=== PATIENT | male | born 1970 | race Caucasian/White ===

== ENCOUNTER 2017-04-23 18:32 | Inpatient (IN) | payer BC ==
[~2017-04-23] VITALS: Ht 182.9 cm; Wt 104.1 kg
[~2017-04-23 18:32] MED LIST: ALBU1AER9 INH; ASPEC325 PO; CETI10TA84 PO; DICL-201 PO; FRRG PO; IBUP-1449 PO; PANT40TA PO; SYMIN/8045 INH
[2017-04-23] MEDS ORDERED: SODIUM CHLORIDE 0.9% 1000ML 1,000 ML IV STA (18:55)
[2017-04-23 19:13] LABS: BASO % 0.2 %; BASO ABS # 0.02 K/uL (0-0.2); COMPLETE YES; EOS % 1.9 %; HEMATOCRIT 36.6 % (42-52); IG% 0.3 %; LYMPH % 27.5 %; LYMPH ABS # 3.18 K/uL (1.2-3.4); MEAN CELL VOLUME 81.5 fL (80-100); MEAN CORPUSCULAR HEMOGLOBIN 27.2 pg (25-34); MEAN CORPUSCULAR HGB CONC 33.3 g/dl (32-36); MEAN PLATELET VOLUME 10.2 fL (7.4-10.4); NEUT % 63.1 %; PLATELET COUNT 301 K/uL (130-400); RED BLOOD COUNT 4.49 M/uL (4.7-6.1); WHITE BLOOD COUNT 11.56 K/uL (4.8-10.8)
[2017-04-23 19:25] LABS: URINE APPEARANCE CLEAR (CLEAR); URINE BILIRUBIN NEG (NEG); URINE COLOR DK YELLOW; URINE NITRITE NEG (NEG); URINE PH 5.5 (4.5-7.5); URINE SPECIFIC GRAVITY 1.028 (1.000-1.030); UROBILINOGEN NEG (NEG); ZZUR CULT IF INDIC CLEAN CATCH NO
[2017-04-23 19:27] LABS: MANUAL MICROSCOPIC REQUIRED? NO; REVIEW REQ? NO
[2017-04-23 19:30] LABS: BUN/CREATININE RATIO 12.4 (10-20); CALCIUM 8.3 mg/dl (8.5-10.1); CREATININE 1.2 mg/dl (0.60-1.40); POTASSIUM 3.8 mmol/L (3.5-5.1)
[2017-04-23] MEDS ORDERED: ALBU18002 INH (19:35)
[2017-04-23] MEDS ORDERED: MoRPHine SULFATE 10 MG/ML CARP/VIAL IV STA (19:44)
[2017-04-23] MEDS ORDERED: ONDANSETRON INJ 2 MG/ML 2 ML VIAL IV STA (19:44)
[2017-04-23] MEDS ORDERED: OPTIRAY 320 IV PRN (19:45)
[2017-04-23] MEDS ORDERED: MoRPHine SULFATE 2 MG/ML CARP ONE (20:20)
[2017-04-23] MEDS ORDERED: MoRPHine SULFATE 4 MG/ML 1 ML CARP\\VIAL ONE (20:20)
--- NOTE | 2017-04-23 20:48 | DIAGNOSTIC IMAGING REPORT ---
CT ABD/PELVIS IV CONTRAST ONLY CLINICAL HISTORY: Periumbilical pain COMPARISON STUDY: None. TECHNIQUE: Following the IV administration of 94 mL of Optiray-320, CT scan of the abdomen and pelvis was performed from the lung bases to the proximal femurs. Images are reviewed in the axial, sagittal, and coronal planes. IV contrast was administered without complication. CT DOSE: 864.30 mGy.cm FINDINGS: Lower chest: There is a small pericardial effusion. There are minor dependent atelectatic changes. There are trace pleural effusions. Liver: The contrast-enhanced liver is normal in size, contour, and attenuation. There is no intrahepatic biliary ductal dilatation. The hepatic veins and portal veins are patent. Gallbladder: There is pericholecystic edema. In the setting of right upper quadrant abdominal pain, the findings are suspicious for acute cholecystitis. Clinical correlation is advocated. Spleen: Normal in size and attenuation. Pancreas: Unremarkable. Adrenal glands: Unremarkable. Kidneys: There is a 6 mm right renal hypodensity likely representing a cyst. There is no hydronephrosis. Bowel: There is a small hiatal hernia. There are no transition zones indicate bowel obstruction. The appendix appears normal. There is no acute diverticulitis. Peritoneum: There is trace free pelvic fluid. No free air is visualized. Vasculature: The abdominal aorta is normal in course and caliber. There is a retroaortic left renal vein. Adenopathy: There is a borderline enlarged lymph node within the gastrohepatic ligament. There are mildly enlarged lymph nodes in the left external iliac chain. There are also borderline enlarged lymph nodes in the left common femoral region. Pelvic viscera: The bladder, and pelvic viscera are unremarkable. Skeletal structures: No destructive osseous lesions are seen. IMPRESSION: 1. Mild infiltration of the pericholecystic fat. In the setting of right upper quadrant abdominal pain, the findings are viewed as suspicious for acute cholecystitis. Clinical correlation in this regard is advocated 2. Mildly enlarged left iliac chain lymph nodes. Borderline enlarged lymph node in the gastric hepatic ligament. 3. No evidence of bowel obstruction. No evidence of free air 4. Normal appendix. No evidence of acute diverticulitis 5. Trace pleural effusions. Small pericardial effusion. Electronically signed by: Keenan Rosario M.D. 04/23/2017 8:47 PM Dictated Date/Time: 04/23/2017 8:40 PM
[2017-04-23] MEDS ORDERED: PIPERACILLIN/TAZOBACTAM 4.5 GM/100ML D5W IV STA (20:51)
--- NOTE | 2017-04-23 21:51 | DIAGNOSTIC IMAGING REPORT ---
BILIARY ULTRASOUND CLINICAL HISTORY: Right upper quadrant abdominal pain. Abnormal CT scan. COMPARISON STUDY: No previous studies for comparison. FINDINGS: The pancreas was nonvisualized. The liver was of slightly increased echogenicity, without evidence of focal mass. There is no ductal dilatation. The common bile duct measures 5 mm. The right kidney measures 10.9 cm in length. The gallbladder contains calculi and sludge. The gallbladder wall is the upper limits of normal in thickness. The technologist reports a negative sonographic Giordano sign. There is trace pericholecystic fluid. IMPRESSION: 1. Cholelithiasis and trace pericholecystic fluid. 2. No ductal dilatation 3. The technologist reports a negative sonographic Giordano sign 4. If deemed clinically necessary, a nuclear medicine hepatobiliary study could be obtained in follow-up to evaluate cystic duct patency Electronically signed by: Keenan Rosario M.D. 04/23/2017 9:50 PM Dictated Date/Time: 04/23/2017 9:47 PM
[2017-04-23] MEDS ORDERED: HYDROmorphone INJ 1 MG/ML SYR IV PRN (23:30)
[2017-04-23] MEDS ORDERED: OXYCODONE/ACETAMINOPHEN 5-325 TAB PO PRN (23:30)
[2017-04-23] MEDS ORDERED: ONDANSETRON INJ 2 MG/ML 2 ML VIAL IV PRN (23:30)
[2017-04-23] MEDS ORDERED: IBUPROFEN 200 MG TAB PO PRN (23:45)
[2017-04-24] VITALS (11 sets, daily range): BP systolic 112–136; BP diastolic 69–84; PULSE 62–94; TEMP 36.6–37.3; O2SAT 91–97; Ht 182.9 cm; Wt 104.1 kg
[2017-04-24] MEDS ORDERED: PIPERACILL/TAZOBAC CONSULT ACTIVE PRN (01:00)
--- NOTE | 2017-04-24 01:02 | EMERGENCY ROOM VISIT NOTE ---
History Report prepared by Fracisco: Hetal Hedrick Under the Supervision of: Dr. Osiel Quick D.O. First contact with patient: 18:43 Chief Complaint: ABDOMINAL PAIN Stated Complaint: CONSTANT STOMACH AND LOWER BACK PAIN History of Present Illness The patient is a 46 year old male who presents to the Emergency Room with complaints of persistent lower back pain starting 3 days ago. He was at dinner when the pain started. Two days ago, he started having mid abdominal pain on both sides. His abdominal pain has been constant. He has taken ibuprofen and Tums to no significant relief. He does not identify any modifying factors for his back pain. He has a history of gallstones and reflux, but the pain is dissimilar to either. He denies any dysuria, leg pain, groin numbness, weakness or numbness in the arms or legs, melena, or hematochezia. He denies history of aorta problems or abdominal surgery. Source of History: patient Onset: 3 days ago Position: back (lower) Quality: other (pain) Timing: constant, other (persistent) Associated Symptoms: + abdominal pain, No hematochezia, No urinary symptoms , No weakness, No numbness Note: Pt denies leg pain. Review of Systems See HPI for pertinent positives & negatives. A total of 10 systems reviewed and were otherwise negative. Past Medical & Surgical Medical Problems: (1) Acute cholecystitis (2) Gall stone (3) Hypertension (4) Left Knee DJD Family History FH: gallbladder disease FH: lung disease Hypertension Seizures Social History Smoking Status: Never Smoker Alcohol Use: occasionally Marital Status: Housing Status: lives with family Occupation Status: employed Current/Historical Medications Scheduled Budesonide/Formoterol Fumarate (Symbicort 80/4.5 Inhaler), 2 PUFFS INH BID Cetirizine (Zyrtec), 10 MG PO QAM Diclofenac (Voltaren), 75 MG PO QAM Pantoprazole (Protonix), 40 MG PO QAM Scheduled PRN Albuterol Sulfate (Proair Respiclick), 2 PUFFS INH Q4 PRN for SOB/Wheezing Ibuprofen Tab (Motrin), 400 MG PO Q6 PRN for Pain Allergies Coded Allergies: Cat Dander (Verified Allergy, Unknown, ASTHMA, 07/19/16) Dog Dander (Verified Allergy, Unknown, ASTHMA, 07/19/16) Dust (Verified Allergy, Unknown, HAYFEVER, INCREASES ASTHMA SYMPTOMS, ) Grass (Verified Allergy, Unknown, INCREASES ASTHMA SYMPTOMS, 08/30/16) NO KNOWN DRUG ALLERGIES (Verified Allergy, Unknown, nkda, 08/30/16) Physical Exam Vital Signs Date Time Temp Pulse Resp B/P (MAP) Pulse Ox O2 Delivery O2 Flow Rate FiO2 04/24/17 00:19 66 18 124/78 98 Room Air 04/23/17 22:38 64 16 126/72 95 Room Air 04/23/17 21:16 66 18 117/77 94 Room Air 04/23/17 18:39 37.4 81 17 143/87 95 Room Air Physical Exam GENERAL: sitting up in bed, disheveled, no acute distress, nontoxic EYE EXAM: normal conjunctiva OROPHARYNX: no exudate, no erythema, lips, buccal mucosa, and tongue normal and mucous membranes are moist NECK: supple, no nuchal rigidity, no adenopathy, non-tender LUNGS: Clear to auscultation. Normal chest wall mechanics HEART: no murmurs, S1 normal and S2 normal ABDOMEN: abdomen soft, tender to palpation in the periumbilical region, normo- active bowel sounds, no masses, no rebound or guarding. BACK: Back is symmetrical on inspection and there is no deformity, no midline tenderness, no CVA tenderness. SKIN: no rashes and no bruising UPPER EXTREMITIES: upper extremities are grossly normal. LOWER EXTREMITIES: No pitting edema. NEURO EXAM: Normal sensorium, cranial nerves II-XII grossly intact, normal speech, no gross weakness of arms, no gross weakness of legs. Medical Decision & Procedures ER Provider Diagnostic Interpretation: Radiology results as stated below per my review and the radiologist's interpretation: CT ABD/PELVIS IV CONTRAST ONLY CLINICAL HISTORY: Periumbilical pain COMPARISON STUDY: None. TECHNIQUE: Following the IV administration of 94 mL of Optiray-320, CT scan of the abdomen and pelvis was performed from the lung bases to the proximal femurs. Images are reviewed in the axial, sagittal, and coronal planes. IV contrast was administered without complication. CT DOSE: 864.30 mGy.cm FINDINGS: Lower chest: There is a small pericardial effusion. There are minor dependent atelectatic changes. There are trace pleural effusions. Liver: The contrast-enhanced liver is normal in size, contour, and attenuation. There is no intrahepatic biliary ductal dilatation. The hepatic veins and portal veins are patent. Gallbladder: There is pericholecystic edema. In the setting of right upper quadrant abdominal pain, the findings are suspicious for acute cholecystitis. Clinical correlation is advocated. Spleen: Normal in size and attenuation. Pancreas: Unremarkable. Adrenal glands: Unremarkable. Kidneys: There is a 6 mm right renal hypodensity likely representing a cyst. There is no hydronephrosis. Bowel: There is a small hiatal hernia. There are no transition zones indicate bowel obstruction. The appendix appears normal. There is no acute diverticulitis. Peritoneum: There is trace free pelvic fluid. No free air is visualized. Vasculature: The abdominal aorta is normal in course and caliber. There is a retroaortic left renal vein. Adenopathy: There is a borderline enlarged lymph node within the gastrohepatic ligament. There are mildly enlarged lymph nodes in the left external iliac chain. There are also borderline enlarged lymph nodes in the left common femoral region. Pelvic viscera: The bladder, and pelvic viscera are unremarkable. Skeletal structures: No destructive osseous lesions are seen. IMPRESSION: 1. Mild infiltration of the pericholecystic fat. In the setting of right upper quadrant abdominal pain, the findings are viewed as suspicious for acute cholecystitis. Clinical correlation in this regard is advocated 2. Mildly enlarged left iliac chain lymph nodes. Borderline enlarged lymph node in the gastric hepatic ligament. 3. No evidence of bowel obstruction. No evidence of free air 4. Normal appendix. No evidence of acute diverticulitis 5. Trace pleural effusions. Small pericardial effusion. Electronically signed by: Keenan Rosario M.D. 04/23/2017 8:47 PM Dictated Date/Time: 04/23/2017 8:40 PM BILIARY ULTRASOUND CLINICAL HISTORY: Right upper quadrant abdominal pain. Abnormal CT scan. COMPARISON STUDY: No previous studies for comparison. FINDINGS: The pancreas was nonvisualized. The liver was of slightly increased echogenicity, without evidence of focal mass. There is no ductal dilatation. The common bile duct measures 5 mm. The right kidney measures 10.9 cm in length. The gallbladder contains calculi and sludge. The gallbladder wall is the upper limits of normal in thickness. The technologist reports a negative sonographic Giordano sign. There is trace pericholecystic fluid. IMPRESSION: 1. Cholelithiasis and trace pericholecystic fluid. 2. No ductal dilatation 3. The technologist reports a negative sonographic Giordano sign 4. If deemed clinically necessary, a nuclear medicine hepatobiliary study could be obtained in follow-up to evaluate cystic duct patency Electronically signed by: Keenan Rosario M.D. 04/23/2017 9:50 PM Dictated Date/Time: 04/23/2017 9:47 PM Laboratory Results 04/23/17 19:00 Red Blood Count 4.49, Mean Corpuscular Volume 81.5, Mean Corpuscular Hemoglobin 27.2, Mean Corpuscular Hemoglobin Concent 33.3, Mean Platelet Volume 10.2, Neutrophils (%) (Auto) 63.1, Lymphocytes (%) (Auto) 27.5, Monocytes (%) (Auto) 7.0, Eosinophils (%) (Auto) 1.9, Basophils (%) (Auto) 0.2, Neutrophils # (Auto) 7.29, Lymphocytes # (Auto) 3.18, Monocytes # (Auto) 0.81, Eosinophils # (Auto) 0.22, Basophils # (Auto) 0.02 04/23/17 19:00 Test 04/23/17 19:00 White Blood Count 11.56 K/uL (4.8-10.8) Red Blood Count 4.49 M/uL (4.7-6.1) Hemoglobin 12.2 g/dL (14.0-18.0) Hematocrit 36.6 % (42-52) Mean Corpuscular Volume 81.5 fL (80-100) Mean Corpuscular Hemoglobin 27.2 pg (25-34) Mean Corpuscular Hemoglobin Concent 33.3 g/dl (32-36) Platelet Count 301 K/uL (130-400) Mean Platelet Volume 10.2 fL (7.4-10.4) Neutrophils (%) (Auto) 63.1 % Lymphocytes (%) (Auto) 27.5 % Monocytes (%) (Auto) 7.0 % Eosinophils (%) (Auto) 1.9 % Basophils (%) (Auto) 0.2 % Neutrophils # (Auto) 7.29 K/uL (1.4-6.5) Lymphocytes # (Auto) 3.18 K/uL (1.2-3.4) Monocytes # (Auto) 0.81 K/uL (0.11-0.59) Eosinophils # (Auto) 0.22 K/uL (0-0.5) Basophils # (Auto) 0.02 K/uL (0-0.2) RDW Standard Deviation 42.1 fL (36.4-46.3) RDW Coefficient of Variation 14.0 % (11.5-14.5) Immature Granulocyte % (Auto) 0.3 % Immature Granulocyte # (Auto) 0.04 K/uL (0.00-0.02) Urine Color DK YELLOW Urine Appearance CLEAR (CLEAR) Urine pH 5.5 (4.5-7.5) Urine Specific [place] 1.028 (1.000-1.030) Urine Protein 1+ (NEG) Urine Glucose (UA) NEG (NEG) Urine Ketones TRACE (NEG) Urine Occult Blood TRACE (NEG) Urine Nitrite NEG (NEG) Urine Bilirubin NEG (NEG) Urine Urobilinogen NEG (NEG) Urine Leukocyte Esterase NEG (NEG) Urine WBC (Auto) 1-5 /hpf (0-5) Urine RBC (Auto) 0-4 /hpf (0-4) Urine Hyaline Casts (Auto) 1-5 /lpf (0-5) Urine Epithelial Cells (Auto) 5-10 /lpf (0-5) Urine Bacteria (Auto) NEG (NEG) Anion Gap 9.0 mmol/L (3-11) Est Creatinine Clear Calc Drug Dose 93.9 ml/min Estimated GFR () 82.4 Estimated GFR (Non- 71.1 BUN/Creatinine Ratio 12.4 (10-20) Calcium Level 8.3 mg/dl (8.5-10.1) Total Bilirubin 0.3 mg/dl (0.2-1) Direct Bilirubin 0.1 mg/dl (0-0.2) Aspartate Amino Transf (AST/SGOT) 42 U/L (15-37) Alanine Aminotransferase (ALT/SGPT) 57 U/L (12-78) Alkaline Phosphatase 103 U/L (45-117) Total Protein 7.7 gm/dl (6.4-8.2) Albumin 3.6 gm/dl (3.4-5.0) Lipase 149 U/L (73-393) Laboratory results per my review. Medications Administered Medications (Trade) Dose Ordered Sig/Gregorio Route Start Time Stop Time Status Last Admin Dose Admin Sodium Chloride 1,000 ml @ 999 mls/hr Q1H1M STAT IV 04/23/17 18:55 04/23/17 19:55 DC 04/23/17 19:13 999 MLS/HR Ondansetron HCl (Zofran Inj) 4 mg NOW STAT IV 04/23/17 19:44 04/23/17 19:45 DC 04/23/17 20:22 4 MG Morphine Sulfate (MoRPHine SULFATE INJ) 2 mg STK-MED ONCE .ROUTE 04/23/17 20:20 04/23/17 20:21 DC 04/23/17 20:22 2 MG Morphine Sulfate (MoRPHine SULFATE INJ) 4 mg STK-MED ONCE .ROUTE 04/23/17 20:20 04/23/17 20:21 DC 04/23/17 20:27 4 MG Piperacillin Sod/ Tazobactam Sod (Zosyn Iv) 4.5 gm NOW STAT IV 04/23/17 20:51 04/23/17 20:52 DC 04/23/17 21:16 4.5 GM ED Course ED COURSE: Vital signs were reviewed and showed hypertension. The patients medical record was reviewed The above diagnostic studies were performed and reviewed. ED treatments and interventions as stated above. 1849: The patient was evaluated in room C3. A complete history and physical examination was performed. 1855: NSS 1000 ml @ 999 mls/hr IV. 1943: Zofran Inj 4 mg IV. 2019: Morphine Sulfate 4 mg IV, Morphine Sulfate 2 mg IV. 2050: Zosyn Iv 4.5 gm IV. 2054: I discussed the patient's case with Dr. Tanner, [facility] [place]. He recommends an ultrasound. 2056: I reevaluated the patient. I updated him on the results and plan. 0: Upon reevaluation, the patient is resting comfortably. I discussed my findings with the patient and he understands and agrees with the treatment plan. Based on the patients age, coexisting illnesses, exam and lab findings the decision to treat as an inpatient was made. The patient remained stable while under my care. The patient will be evaluated for further management. 2240: I discussed the patient's case with Dr. Tanner, [facility] [place]. He will evaluate the patient for further management. 2323: Dr. Tanner has evaluated the patient. He will take the patient to the OR tomorrow. Medical Decision Differential diagnoses includes but is not limited to gastritis, peptic ulcer disease, GERD, gallbladder disease, pancreatitis, small bowel obstruction, acute coronary syndrome, pericarditis, ischemic bowel, irritable bowel disease, irritable bowel syndrome, appendicitis, diverticulitis, malignancy, hernia, urinary tract infection, torsion, perforation, trauma, infectious. Medication Reconciliation: I attest that I have personally reviewed the patient' s current medication list. Blood pressure screening: Patient was found to have an elevated blood pressure and was referred to their primary doctor for recheck and further treatment. Patient is a 46-year-old male who presents the ER for epigastric abdominal pain. He notes he initially had pain in his back on night and has progressed to his abdomen. He does have nausea but no vomiting. It has been constant. Labs show a leukocytosis of 12,000. BMP along with LFTs, bilirubin and lipase were unremarkable. UA was negative. CT of the abdomen and pelvis shows pericholecystic stranding. Patient was given IV antibiotics along with IV narcotics. Ultrasound confirms cholelithiasis with pericholecystic fluid. Patient family were updated bedside. They're evaluated by general surgery and were admitted for cholecystitis. Consults Time Called: 2052 Consulting Physician: Dr. Tanner, [facility] [place] Returned Call: [phone] I discussed the patient's case with him. He recommends an ultrasound be taken. Additional Consults: Time Called: 2211 Consulted Physician: Dr. Tanner, [facility] [place] Returned Call: [phone] Additional Comments: I discussed the patient's case with him. He will evaluate the patient for further management. Impression Primary Impression: Cholecystitis Scribe Attestation The scribe's documentation has been prepared under my direction and personally reviewed by me in its entirety. I confirm that the note above accurately reflects all work, treatment, procedures, and medical decision making performed by me. Departure Information Dispostion Being Evaluated By Surgeon Wily Hutchinson M.D. ([facility]) (PCP) Patient Instructions [facility]
[2017-04-24] MEDS: LACTATED RINGER'S 1000ML 1,000 ML IV SCH ×5 (01:31→20:48)
[2017-04-24] MEDS: PIPERACILL/TAZOBAC IV 3.375 GM in DEXTROSE 5% 100ML 100 ML IV SCH ×3 (02:02→22:28)
--- NOTE | 2017-04-24 04:06 | HISTORY & PHYSICAL EXAMINATION ---
DATE OF ADMISSION: 04/23/2017 TIME: 11:30 in the evening. SUMMARY: A call by the ER physician approximately an hour ago for Mr. Suarez, who presented with CAT scans finding of some inflammatory process in the right upper quadrant documented on the ultrasound, which showed cholelithiasis, most likely acute cholecystitis. This is a 46-year-old gentleman who was vacationing in [place] last week, actually on , started having some abdominal pain and back pain. He attributed to just the bed mattress that he was sleeping in and then probably sitting up at the beach on a rugged chair, but progressively got worse. He came home after an 18-hour drive where he was nauseated. Then, he had some reflux. He has had a longstanding history of reflux. The patient's then eventually felt that he should come in to the ER and came in about 6:30 this evening where the above findings were made. PAST MEDICAL HISTORY: Remarkable for having had some orthopedic issues. He has had no previous abdominal surgery or chest surgery. Denies any cardiac history or any pulmonary history. He does have a number of allergies, mostly the dander and other pollens, but no known drug allergies. He works as a banker. He does not do any heavy lifting. MEDICATIONS: His present medications that he takes are albuterol, Symbicort, Zyrtec, ibuprofen, and Protonix. REVIEW OF SYSTEMS: He denies any changes in weight, any GI or symptoms longstanding other than the significant reflux that he has had that has never been evaluated. As he stands now, he is resting comfortably, complaining of some abdominal pain, but not significant. His is at the bedside. His last vitals showed a temperature of 37.4, which was obtained about 6:30 in the evening and nothing has been recorded since then, but his pulses is lately at 64, respirations 16, blood pressure 126/72, O2 sats is 95 on room air. LABORATORY DATA: His white count is 11.58 with a left shift, hemoglobin was 12.2. He does not have any liver enzymes elevation and his lipase is normal. BUN is 15, creatinine 1.20. PHYSICAL EXAMINATION: HEAD: Normocephalic. EYES: PERRLA. The sclerae is nonicteric. NECK: There is no cervical lymphadenopathy. HEART: Normal sinus rhythm. LUNGS: Clear. ABDOMEN: Significant right upper quadrant guarding and some tenderness. Rest of the abdomen is negative. EXTREMITIES: No peripheral edema appreciated. DIAGNOSTIC IMPRESSION: The CAT scan has aside from the inflammatory process in the right upper quadrant, it mentions of few large nodes, one along the external iliac on the left and one on the gastrohepatic ligament. I do not feel any other lymph nodes on any place else on the physical exam. PLAN: At this point, the patient is recommended to come in and plan for laparoscopic cholecystectomy, intraoperative cholangiogram for tomorrow. Risks and complications of surgery were explained to the patient of bleeding, infection, converting to an open procedure and he would like to proceed accordingly.
--- NOTE | 2017-04-24 06:28 | DIAGNOSTIC IMAGING REPORT ---
CHEST ONE VIEW PORTABLE CLINICAL HISTORY: preop preoperative COMPARISON STUDY: 07/19/2016 FINDINGS: The bones soft tissues and hemidiaphragms are normal. The cardiomediastinal silhouette is normal. The lungs are clear. The pulmonary vasculature is normal. IMPRESSION: Negative chest. Electronically signed by: Dayron Boudreaux M.D. 04/24/2017 6:26 AM Dictated Date/Time: 04/24/2017 6:26 AM
[2017-04-24 07:10] LABS: CREATININE 1.3 mg/dl (0.60-1.40)
[2017-04-24] MEDS: DICLOFENAC SOD EC 75 MG TABCR PO SCH (09:00)
[2017-04-24] MEDS: CETIRIZINE HCL 10 MG TAB PO SCH (09:00)
[2017-04-24] MEDS: BUDESONIDE/FORMOTEROL FUMARATE 80/4.5 60 PUFFS/INHALER INH SCH ×2 (09:00→20:48)
[2017-04-24] MEDS: PANTOprazole SOD 40 MG TAB PO SCH (09:00)
--- NOTE | 2017-04-24 09:13 | History & Physical Bridge Note ---
H&P Re-Evaluation Bridge Note: I have examined the patient, reviewed the History & Physical and in the interval since the performance of the History & Physical I have noted the following changes of clinical significance: No changes noted still with ruq guarding and tenderness will proceed with moreno mir 'kyara today
[2017-04-24] MEDS ORDERED: MIDAZOLAM HCL 1 MG/ML 2ML VIAL ONE (09:33)
[2017-04-24] MEDS ORDERED: ROCURONIUM BROMIDE 10 MG/ML 5 ML VIAL ONE (09:33)
[2017-04-24] MEDS ORDERED: DEXAMETHASONE SOD INJ 4 MG/ML VIAL ONE (09:33)
[2017-04-24] MEDS ORDERED: FENTANYL CITRATE INJ 50 MCG/1 ML 2 ML VIAL ONE (09:33)
[2017-04-24] MEDS ORDERED: PROPOFOL IV EMULSION 10 MG/ML 20 ML VIAL IV ONE (09:33)
[2017-04-24] MEDS ORDERED: GLYCOPYRROLATE INJ 0.2 MG/ML VIAL ONE (09:33)
[2017-04-24] MEDS ORDERED: ONDANSETRON INJ 2 MG/ML 2 ML VIAL ONE (09:33)
[2017-04-24] MEDS ORDERED: NEOSTIGMINE METHYLSULFATE 5 MG/5 ML SYR ONE (09:33)
[2017-04-24] MEDS ORDERED: LIDOCAINE HCL 2% 2 ML VIAL (20MG/ML) ONE (09:33)
[2017-04-24] MEDS ORDERED: LABETALOL HCL IV 5 MG/ML 20ML IV PRN (09:45)
[2017-04-24] MEDS ORDERED: MEPERIDINE HCL 25 MG/ML CARP IV PRN (09:45)
[2017-04-24] MEDS ORDERED: EpHEDrine SULFATE INJ 50 MG/ML AMP IV PRN (09:45)
[2017-04-24] MEDS ORDERED: ATROPINE SULFATE 0.1 MG/ML 5ML SYR IV PRN (09:45)
[2017-04-24] MEDS ORDERED: PHENYLEPHRINE 100MCG/ML 5ML SYR IV PRN (09:45)
[2017-04-24] MEDS ORDERED: HYDROmorphone INJ 2 MG/ML SYR/VIAL IV PRN (09:45)
[2017-04-24] MEDS ORDERED: ONDANSETRON INJ 2 MG/ML 2 ML VIAL IV PRN ×2 (09:45→12:15)
[2017-04-24] MEDS ORDERED: NALOXONE HCL 0.4 MG/1 ML VIAL/CARP IV PRN (09:45)
[2017-04-24] MEDS ORDERED: FLUMAZENIL 0.1 MG/1 ML 10 ML VIAL IV PRN (09:45)
[2017-04-24] MEDS ORDERED: LIDOCAINE/EPINEPHRINE 1% 20 ML VIAL ONE (10:00)
[2017-04-24] MEDS ORDERED: CONRAY 60% 50 ML VIAL ONE (10:00)
--- NOTE | 2017-04-24 11:23 | DIAGNOSTIC IMAGING REPORT ---
CHOLANGIOGRAM O.R. CLINICAL HISTORY: Cholecystitis COMPARISON STUDY: Ultrasound dated 04/23/2017 FLUOROSCOPY TIME: 6 seconds. 4 fluoroscopic spot images were acquired.. FINDINGS: Contrast was instilled into the common bile duct. There are no filling defects to indicate retained calculi. There is free flow into the duodenum. There is minimal focal narrowing of the common bile duct at the cystic duct junction. This may represent spasm. IMPRESSION: No retained calculi are visualized. There is free flow into the duodenum. Electronically signed by: Keenan Rosario M.D. 04/24/2017 11:22 AM Dictated Date/Time: 04/24/2017 11:21 AM
[2017-04-24] MEDS ORDERED: KETOROLAC TROMETHAMINE 30 MG/ML VIAL ONE (11:44)
--- NOTE | 2017-04-24 12:01 | [facility] Post Operative Brief Note ---
Immediate Operative Summary Operative Date Apr 24, 2017. Pre-Operative Diagnosis Acute Cholecysitis cholelithiasis Post-Operative Diagnosis sameAcute Cholecysitis Procedure(s) Performed Laparoscopic Cholecystectomy with Operative Cholangiogram Surgeon Dr. Tanner Program Development Manager Surgeon(s) Cydney Ariza Estimated Blood Loss 10 ML Findings cc with hydrops gallbladder Specimens Microbiology: 1. Gallbladder contents for aerobic and anaerobic. Drains #19 roddy per stab
[2017-04-24] MEDS ORDERED: OXYC-57 PO (12:11)
[2017-04-24] MEDS ORDERED: OXYCODONE/ACETAMINOPHEN 5-325 TAB PO PRN ×3 (12:15)
[2017-04-24] MEDS ORDERED: ALBUTEROL HFA 8 GM INHALER INH PRN (12:15)
--- NOTE | 2017-04-24 12:15 | Discharge Instructions ---
Discharge Instructions Date of Service Apr 24, 2017. Admission Reason for Admission: Acute Cholecystitis Discharge Discharge Diagnosis / Problem: Acute Cholecystitis Discharge Goals Goal(s): Decrease discomfort, Improve function Activity Recommendations Activity Limitations: as noted below Lifting Limitations: no more than 10 pounds Exercise/Sports Limitations: until after follow-up appointment May Resume Sexual Activity: after follow-up appointment Shower/Bathe: tomorrow . Instructions / Follow-Up Instructions / Follow-Up Please call the office at [phone] to make an appointment to have your drain out. You can have your drain removed this Monday, April 28, 2017. The office is located at [address] [place] [address], [place] [address]. Please call the office with any questions or concerns at [phone]. Current Hospital Diet Patient's current hospital diet: Clear Liquid Diet Discharge Diet Recommended Diet: Regular Diet Procedures Procedures Performed: Laparoscopic Cholecystectomy with Operative Cholangiogram Pending Studies Studies pending at discharge: yes List of pending studies: Pathology report. Medical Emergencies . Who to Call and When: Medical Emergencies: If at any time you feel your situation is an emergency, please call 911 immediately. . Non-Emergent Contact Non-Emergency issues call your: Primary Care Provider, Surgeon Call Non-Emergent contact if: temperature is above 101.5, your pain is not controlled, wound has increased drainage, wound has increased redness . "Provider Documentation" section prepared by Cydney Menchaca. . VTE Core Measure Inpt VTE Proph given/why not?: SCD's [place] Drug Monitoring Program Search Results: patient reviewed within database, no issues identified
[2017-04-24] MEDS: FENTANYL CITRATE INJ 50 MCG/1 ML 2 ML VIAL IV PRN ×4 (12:20→12:35)
[2017-04-24] MEDS ORDERED: CIPR1TAB10 PO (12:23)
--- NOTE | 2017-04-24 12:50 | Anesthesiology Progress Note ---
Anesthesia Post Op Note Date & Time Apr 24, 2017 at 12:50 Vital Signs Pain Intensity: 3 Vital Signs Past 12 Hours Date Time Temp Pulse Resp B/P (MAP) Pulse Ox O2 Delivery O2 Flow Rate FiO2 04/24/17 12:45 36.2 72 16 133/80 98 Mask 3 04/24/17 12:35 68 16 129/72 95 Mask 3 04/24/17 12:25 66 16 127/70 100 Mask 10 04/24/17 12:15 75 16 125/69 100 Mask 10 04/24/17 12:06 36.2 71 16 135/73 100 Mask 10 04/24/17 07:20 Room Air 04/24/17 07:05 36.6 73 18 122/74 (90) 93 Room Air 04/24/17 02:01 97 Room Air 04/24/17 01:46 Room Air 04/24/17 01:05 36.6 62 16 119/74 97 Room Air Notes Mental Status: alert / awake / arousable, participated in evaluation Pt Amnestic to Procedure: Yes Nausea / Vomiting: adequately controlled Pain: adequately controlled Airway Patency, RR, SpO2: stable & adequate BP & HR: stable & adequate Hydration State: stable & adequate Anesthetic Complications: no major complications apparent
--- NOTE | 2017-04-24 15:02 | OPERATIVE REPORT ---
DATE OF OPERATION: 04/24/2017 SURGEON: José Miguel Tanner MD MAIL PROCESSING MACHINE OPERATOR: Cydney Menchaca PA-C PREOPERATIVE DIAGNOSES: Acute and chronic cholecystitis, cholelithiasis. POSTOPERATIVE DIAGNOSES: Same with hydrops of the gallbladder. PROCEDURE: Laparoscopic cholecystectomy, intraoperative cholangiogram. SUMMARY: The patient's abdomen was prepped with Betadine scrub and solution and properly draped. I made a small incision supraumbilically sufficient enough to place a Veress needle followed by CO2, followed by a 5 mm trocar. Point of entry inspected and no injury identified. Under direct visualization, we placed a 5 mm epigastric, two 5 mm subcostal ports, with preemptive analgesia 1% Xylocaine without epinephrine. Identified the gallbladder which was markedly thickened. We at this point elevated it with a grasper coming out the lateral port. A needle was placed in the gallbladder, suctioned it out, this was clear bile indicating that this was mostly hydrops of the gallbladder. At this point, we elevated the gallbladder, placed the patient in reverse Trendelenburg position significant to the left. We were able to get towards the neck of the gallbladder, this was acutely inflamed. Most of our dissection was done bluntly to the point that we were able then to identify the cystic duct as it went into the gallbladder. We clipped it proximally. A small opening in the cystic duct was made. A #4 urethral catheter transversed the abdominal wall, was positioned in the cystic duct and serial x-rays obtained which showed free flow in the duodenum, no obstruction. At this point, the cystic duct was doubly clipped and divided. Gallbladder was removed in the antegrade fashion, identified the artery, doubly clipped and divided. We left pretty much posterior peritoneum was quite thickened. We did not get into the liver at all, most of our dissection was done bluntly due to the acute inflammation. Once the gallbladder was lifted out from the liver bed, we placed in an Endopouch and took it out intact through the epigastric port. The subhepatic and suprahepatic area was suctioned out copiously. Hemostasis was satisfactory and I elected to drain it with subhepatic drain, bringing it out in a 19 Karel drain from the epigastric area to the lateral port and placed subhepatically under direct visualization, attaching the skin edges with 2-0 silk suture. Prior to closing the abdomen we placed the camera in subcostal ports to visualize the umbilical opening and there were no adhesions to the umbilical area. Once we were closed with Monocryl. Steri- Strips applied. The procedure was tolerated well by the patient. Estimated blood loss approximately 10 mL. The patient was taken to the recovery room in good condition. I attest to the content of the Intraoperative Record and any orders documented therein. Any exceptions are noted below. IVETHD
--- NOTE | 2017-04-24 15:05 | Medical Student: [facility] ---
Operative Report Operative Date Apr 24, 2017. Pre-Operative Diagnosis acute cholecystitis / cholelithiasis Post-Operative Diagnosis same Procedure(s) Performed laproscopic cholecystectomy with intraoperative cholangiogram Surgeon Dr. Tanner Counter Person Surgeon(s) MARISOL Shannon Estimated Blood Loss 10 cc Findings acute cholecystitis with hydrops of the gallbladder Specimens gallbladder sent to pathology to check for aerobe/anaerobe bacteria Drains #19 roddy Anesthesia general Complication(s) None Disposition Recovery Room / PACU
[2017-04-24] MEDS ORDERED: NURSING VERBAL MED ORDER ONE ×2 (15:30→19:15)
[2017-04-24] MEDS: ACETAMINOPHEN IV 650 MG in EMPTY BAG 0 ML IV PRN ×2 (16:23→17:00)
[2017-04-24] MEDS: HYDROCODONE/ACETAMOPHEN 5/325MG TAB PO PRN (19:55)
[2017-04-25] MEDS: HYDROCODONE/ACETAMOPHEN 5/325MG TAB PO PRN ×2 (02:53→10:39)
[2017-04-25 04:05] VITALS: BP 113/63; PULSE 84; TEMP 37; O2SAT 92
[2017-04-25] MEDS: LACTATED RINGER'S 1000ML 1,000 ML IV SCH ×2 (05:04→12:53)
[2017-04-25] MEDS: PIPERACILL/TAZOBAC IV 3.375 GM in DEXTROSE 5% 100ML 100 ML IV SCH ×2 (05:04→14:00)
[2017-04-25 06:18] LABS: BASO % 0.2 %; BASO ABS # 0.02 K/uL (0-0.2); COMPLETE YES; EOS % 0.1 %; HEMATOCRIT 31.3 % (42-52); IG% 0.4 %; LYMPH % 15.9 %; LYMPH ABS # 1.77 K/uL (1.2-3.4); MEAN CELL VOLUME 82.6 fL (80-100); MEAN CORPUSCULAR HGB CONC 33.9 g/dl (32-36); MEAN PLATELET VOLUME 10.3 fL (7.4-10.4); MONO % 10.2 %; NEUT % 73.2 %; PLATELET COUNT 291 K/uL (130-400); RED BLOOD COUNT 3.79 M/uL (4.7-6.1); WHITE BLOOD COUNT 11.13 K/uL (4.8-10.8)
[2017-04-25 06:55] LABS: BUN/CREATININE RATIO 11.5 (10-20); CALCIUM 7.8 mg/dl (8.5-10.1); CREATININE 1.2 mg/dl (0.60-1.40)
[2017-04-25 07:26] VITALS: BP 116/65; PULSE 69; TEMP 36.8; O2SAT 91
--- NOTE | 2017-04-25 08:20 | SURGERY PROGRESS NOTE ---
DATE: 04/25/2017 Zhou is resting comfortably. He has minimal discomfort. He is alert, coherent. Intraoperative findings were discussed with the patient. Last vitals showed a temperature of 36.8, pulse 69, respirations 19, blood pressure 116/65, O2 sats 91 on room air. I&O, Karel drainage was just 20 mL of serosanguineous, it is nonbilious, urine output is 425. He tolerated a diet. His abdomen is softly distended as expected. At this point, pending further evaluation, we will see how he does with a regular diet. He can probably be discharged today and instructed to come into the office Monday to remove the Karel drain. Instructions were given on activity and diet. His laboratory this morning showed a white count of 11.13, he still has a little left shift and this is from surgery. Liver function tests are normal. We will continue him on Cipro for another 5 days as p.o. antibiotics.
[2017-04-25] MEDS: DICLOFENAC SOD EC 75 MG TABCR PO SCH (08:31)
[2017-04-25] MEDS: CETIRIZINE HCL 10 MG TAB PO SCH (08:31)
[2017-04-25] MEDS: PANTOprazole SOD 40 MG TAB PO SCH (08:31)
[2017-04-25] MEDS: BUDESONIDE/FORMOTEROL FUMARATE 80/4.5 60 PUFFS/INHALER INH SCH (08:32)
[2017-04-25 10:25] VITALS: BP 116/65; PULSE 69; TEMP 36.8; O2SAT 91
[2017-04-25] MEDS ORDERED: HYDR-5688 PO (13:49)
--- NOTE | 2017-04-28 11:02 | Discharge Summary ---
Discharge Summary Date of Service Apr 28, 2017. Admission Date/Reason Apr 23, 2017 at 23:32 Acute Cholecystitis. Discharge Date/Disposition Apr 25, 2017 Home Diagnosis Principal Diagnosis: 1. Acute Cholecystitis. Secondary Diagnoses/Problems: 1. Hypertension. Procedure(s) Performed Laparoscopic Cholecystectomy with Intraoperative Cholangiogram. Medication Reconciliation 1. Ciprofloxacin 500mg PO Q12H X 7 days #14 2. Meno 5mg/325mg 1-2 tabs PO Q4H PRN for pain #30. Admission Physical Exam As per Admitting History & Physical. Hospital Course Mr. Suarez was seen by Dr. Tanner in the ED after patient presented for evaluation for abdominal pain. CT scan showed inflammatory process in the right upper quadrant. Adbominal ultrasound revealed 1. Cholelithiasis and trace pericholecystic fluid. 2. No ductal dilatation 3. The technologist reports a negative sonographic Giordano sign 4. If deemed clinically necessary, a nuclear medicine hepatobiliary study could be obtained in follow-up to evaluate cystic duct patency. Patient reported that he was recently on vacation in [place] when he started to experience abdominal pain and back pain, which he attributed to poor bed mattress. He drove home and during the drive became nauseous. His encouraged him to come to the ED. Dr. Tanner decided to proceed with laparoscopic cholecystectomy with intraoperative cholangiogram. TAMIKO drain was placed. Preoperative Diagnoses: Acute and Chronic Cholecystitis; Cholelithiasis Post-Operative Diagnoses: Same with Hydrops of the Gallbladder. Patient tolerated Laparoscopic Cholecystectomy well. Post-operatively, patient was extremely drowsy and was having some post-operative pain. Patient was admitted overnight for pain control. He tolerated a regular diet and was discharged the next day with pain medication and 7 days of Cipro. Drain remained in at discharge. Patient to return to see Dr. Tanner in the office in 1-2 weeks. Drain will be removed this coming 04/28/17. Discharge Instructions Please refer to the electronic Patient Visit Report (Discharge Instructions) for additional information.
== END 2017-04-25 14:20 | disposition home or self-care (01) | DRG 418 ==
LOC: C.EDB 18:33 → C.MSW 23:32 → ENRESERV 23:48
PROVIDERS: ADMIT Surgery; ATTEND Surgery
PROC: 0FT44ZZ Resection of Gallbladder, Percutaneous Endoscopic Approach (ICD-10-PCS; principal; 2017-04-24 11:00)
DX: K80.12 Calculus of gallbladder with acute and chronic cholecystitis without obstruction (principal); K82.1 Hydrops of gallbladder; I10 Essential (primary) hypertension; Z82.0 Family history of epilepsy and other diseases of the nervous system; Z82.49 Family history of ischemic heart disease and other diseases of the circulatory system